=== PATIENT | male | born 1975 | race Caucasian/White ===

== ENCOUNTER 2018-08-03 09:23 | Inpatient (IN) | payer MEDICAID ==
[~2018-08-03] VITALS: Ht 188 cm; Wt 108.7 kg
[2018-08-03] MEDS ORDERED: SODIUM CHLORIDE 0.9% 1,000 ML IV ONE (10:43)
[2018-08-03] MEDS ORDERED: ENOXAPARIN SOD 100 MG/1 ML SYRINGE SC ONE (10:45)
[2018-08-03 11:19] LABS: Basophils # (auto) 0 uL; Basophils % (auto) 0.1 % (0.0-2.0); Eosinophils # (auto) 0 uL; Eosinophils % (auto) 0.2 % (0.0-7.0); Hematocrit 45.3 % (41.0-53.0); Hemoglobin 15.6 g/dL (13.5-17.5); Lymphocytes % (auto) 6.1 % (10.0-50.0); Mean Corpuscular Hemoglobin 31.2 pg (28.0-32.0); Mean Corpuscular Hgb Conc. 34.5 g/dL (32.0-36.0); Mean Corpuscular Volume 90.4 fL (80.0-100.0); Monocytes # (auto) 1.5 uL; Monocytes % (auto) 8.7 % (0.0-12.0); Neutrophils # (auto) 14.3 uL; Neutrophils % (auto) 84.9 % (37.0-80.0); Platelet Count (auto) 364 10^3/uL (140-450); Red Cell Distribution Width 13.1 % (11.8-14.3); White Blood Cell 16.9 10^3/uL (4.4-10.8)
[2018-08-03 11:41] LABS: INR 0.92 (0.9-1.15); Partial Thromboplastin Time 31.8 sec (23.78-33.04); Prothrombin Time 9.9 sec (9.27-12.13)
[2018-08-03 11:47] LABS: Alanine Aminotransferase 39 U/L (16-61); Albumin 3.3 g/dL (3.4-5.0); Alkaline Phosphatase 126 U/L (45-117); Anion Gap 7 (5-15); Aspartate Aminotransferase 18 U/L (15-37); BUN/Creatinine Ratio 18.3; Bilirubin, Total 0.7 mg/dL (0.2-1.0); Blood Urea Nitrogen 15 mg/dL (7-18); Calcium 8.9 mg/dL (8.5-10.1); Carbon Dioxide 22 mmol/L (21-32); Chloride 105 mmol/L (98-107); GFR African American 131 mL/min; GFR Non-African American 108 mL/min; Glucose 109 mg/dL (74-106); Magnesium 2.8 mg/dL (1.6-2.6); Potassium 3.9 mmol/L (3.5-5.1); Sodium 134 mmol/L (136-145); Total Protein 8.4 g/dL (6.4-8.2)
[2018-08-03 12:03] LABS: Urine Bacteria NONE SEEN /hpf (None Seen); Urine Blood Negative /uL (Negative); Urine Mucus MODERATE (None Seen); Urine Specific Gravity 1.033 (1.001-1.035); Urine WBC 2 /hpf (0 - 3)
[2018-08-03] MEDS ORDERED: IOHEXOL 350 MG/ML 100ML IJ ONE (12:05)
[2018-08-03] MEDS ORDERED: ONDANSETRON HCL 4 MG/2 ML VIAL IV PRN (15:00)
[2018-08-03] MEDS ORDERED: TEMAZEPAM 15 MG CAP PO PRN (15:00)
[2018-08-03] MEDS ORDERED: cloNIDine HCL 0.1 MG TAB PO PRN (15:00)
[2018-08-03] MEDS ORDERED: NITROGLYCERIN 0.4 MG SL TAB SL PRN (15:00)
[2018-08-03] MEDS ORDERED: MORPHINE SULFATE 4 MG/ML SYR/VIAL IV PRN (15:00)
[2018-08-03] MEDS ORDERED: ACETAMINOPHEN 325 MG TAB PO PRN (15:00)
[2018-08-03 16:50] VITALS: BP 139/83
[2018-08-03] MEDS ORDERED: WARFARIN SODIUM 5 MG TAB PO ONE (17:00)
[2018-08-03] MEDS: DOCUSATE SOD 100 MG CAP PO PRN (17:07)
[2018-08-03] MEDS: MORPHINE SULFATE 4 MG/ML SYR/VIAL IV PRN ×2 (17:07→20:41)
[2018-08-03 19:53] VITALS: BP 149/87
[2018-08-03] MEDS: SODIUM CHLOR 0.9% PF (SALINE LOCK) 10ML VIAL/SYR IV SCH (20:39)
[2018-08-03] MEDS: FAMOTIDINE 20 MG TAB PO SCH (20:40)
[2018-08-03] MEDS: OLANZapine 5 MG TAB PO SCH (20:40)
[2018-08-03] MEDS: ENOXAPARIN SOD 120 MG/0.8 ML SYRINGE SC SCH (20:40)
[2018-08-04 00:46] VITALS: BP 121/88
[2018-08-04] MEDS: MORPHINE SULFATE 4 MG/ML SYR/VIAL IV PRN (04:30)
[2018-08-04 05:00] VITALS: BP 129/83
[2018-08-04 05:04] LABS: Basophils # (auto) 0.1 uL; Basophils % (auto) 0.5 % (0.0-2.0); Eosinophils # (auto) 0.2 uL; Eosinophils % (auto) 1.6 % (0.0-7.0); Hematocrit 41.6 % (41.0-53.0); Hemoglobin 14.1 g/dL (13.5-17.5); Lymphocytes # (auto) 1.7 uL; Mean Corpuscular Hemoglobin 30.8 pg (28.0-32.0); Mean Corpuscular Hgb Conc. 33.9 g/dL (32.0-36.0); Mean Corpuscular Volume 90.7 fL (80.0-100.0); Monocytes # (auto) 1.3 uL; Monocytes % (auto) 10.5 % (0.0-12.0); Neutrophils # (auto) 9.4 uL; Neutrophils % (auto) 74.4 % (37.0-80.0); Platelet Count (auto) 360 10^3/uL (140-450); Red Blood Cells 4.58 10^6/uL (4.5-5.90); White Blood Cell 12.7 10^3/uL (4.4-10.8)
[2018-08-04 05:17] LABS: INR 0.94 (0.9-1.15); Prothrombin Time 10.1 sec (9.27-12.13)
[2018-08-04 05:28] LABS: Alanine Aminotransferase 29 U/L (16-61); Albumin 2.6 g/dL (3.4-5.0); Alkaline Phosphatase 106 U/L (45-117); Anion Gap 7 (5-15); Aspartate Aminotransferase 9 U/L (15-37); BUN/Creatinine Ratio 19.4; Bilirubin, Total 0.5 mg/dL (0.2-1.0); Blood Urea Nitrogen 14 mg/dL (7-18); Calcium 7.9 mg/dL (8.5-10.1); Carbon Dioxide 23 mmol/L (21-32); Chloride 106 mmol/L (98-107); GFR African American 153 mL/min; GFR Non-African American 126 mL/min; Glucose 103 mg/dL (74-106); Potassium 3.8 mmol/L (3.5-5.1); Sodium 136 mmol/L (136-145)
[2018-08-04] MEDS: SODIUM CHLOR 0.9% PF (SALINE LOCK) 10ML VIAL/SYR IV SCH ×3 (06:08→21:34)
[2018-08-04 08:00] VITALS: BP 126/71
[2018-08-04] MEDS: FAMOTIDINE 20 MG TAB PO SCH ×2 (09:55→21:39)
[2018-08-04] MEDS: OLANZapine 5 MG TAB PO SCH ×2 (09:55→21:39)
[2018-08-04] MEDS: ENOXAPARIN SOD 120 MG/0.8 ML SYRINGE SC SCH ×2 (09:56→21:40)
[2018-08-04] MEDS: DOCUSATE SOD 100 MG CAP PO PRN (09:57)
[2018-08-04] MEDS: HYDROcodone-ACET 5/325MG TAB PO PRN ×2 (09:58→20:08)
[2018-08-04] MEDS: MULTIPLE VITAMIN TAB PO SCH (09:58)
[2018-08-04 12:00] VITALS: BP 124/80
[2018-08-04 15:54] VITALS: BP 122/58
[2018-08-04 20:00] VITALS: BP 129/78
[2018-08-05] VITALS: BP 124/73
[2018-08-05 04:00] VITALS: BP 117/79
[2018-08-05] MEDS: SODIUM CHLOR 0.9% PF (SALINE LOCK) 10ML VIAL/SYR IV SCH ×3 (05:10→21:33)
[2018-08-05 05:31] LABS: Basophils # (auto) 0.1 uL; Basophils % (auto) 0.5 % (0.0-2.0); Eosinophils # (auto) 0.3 uL; Eosinophils % (auto) 2.3 % (0.0-7.0); Hemoglobin 14.4 g/dL (13.5-17.5); Lymphocytes # (auto) 1.7 uL; Lymphocytes % (auto) 14.1 % (10.0-50.0); Mean Corpuscular Hemoglobin 30.2 pg (28.0-32.0); Mean Corpuscular Hgb Conc. 33.4 g/dL (32.0-36.0); Mean Corpuscular Volume 90.5 fL (80.0-100.0); Monocytes # (auto) 1.1 uL; Monocytes % (auto) 8.9 % (0.0-12.0); Neutrophils # (auto) 8.9 uL; Neutrophils % (auto) 74.2 % (37.0-80.0); Nucleated Red Blood Cells % 0.1 %; Platelet Count (auto) 390 10^3/uL (140-450); Red Blood Cells 4.76 10^6/uL (4.5-5.90); Red Cell Distribution Width 13.2 % (11.8-14.3)
[2018-08-05 05:52] LABS: Albumin 2.6 g/dL (3.4-5.0); Bilirubin, Total 0.3 mg/dL (0.2-1.0); Calcium 8.5 mg/dL (8.5-10.1); Potassium 3.7 mmol/L (3.5-5.1); Total Protein 7.2 g/dL (6.4-8.2)
[2018-08-05 08:00] VITALS: BP 130/84
[2018-08-05 09:34] LABS: INR 1.09 (0.9-1.15); Prothrombin Time 11.6 sec (9.27-12.13)
[2018-08-05] MEDS: FAMOTIDINE 20 MG TAB PO SCH ×2 (09:39→21:33)
[2018-08-05] MEDS: MULTIPLE VITAMIN TAB PO SCH (09:39)
[2018-08-05] MEDS: ENOXAPARIN SOD 120 MG/0.8 ML SYRINGE SC SCH ×2 (09:40→21:34)
[2018-08-05] MEDS: HYDROcodone-ACET 5/325MG TAB PO PRN ×2 (09:40→19:57)
[2018-08-05] MEDS ORDERED: WARFARIN SODIUM 10 MG TAB PO ONE ×2 (09:49→10:00)
[2018-08-05] MEDS: DOCUSATE SOD 100 MG CAP PO PRN (09:52)
[2018-08-05] MEDS: OLANZapine 5 MG TAB PO SCH ×2 (09:53→21:33)
[2018-08-05 11:50] VITALS: BP 122/73
[2018-08-05 15:50] VITALS: BP 123/75
[2018-08-05 22:00] VITALS: BP 118/77
[2018-08-06 05:56] VITALS: BP 120/75
[2018-08-06] MEDS: SODIUM CHLOR 0.9% PF (SALINE LOCK) 10ML VIAL/SYR IV SCH ×3 (06:17→19:37)
[2018-08-06 06:35] LABS: INR 1.58 (0.9-1.15); Partial Thromboplastin Time 42.5 sec (23.78-33.04); Prothrombin Time 16.5 sec (9.27-12.13)
[2018-08-06 09:00] VITALS: BP 109/68
[2018-08-06] MEDS: ENOXAPARIN SOD 120 MG/0.8 ML SYRINGE SC SCH ×2 (10:04→19:36)
[2018-08-06] MEDS: MULTIPLE VITAMIN TAB PO SCH (10:04)
[2018-08-06] MEDS: OLANZapine 5 MG TAB PO SCH ×2 (10:04→19:37)
[2018-08-06] MEDS: FAMOTIDINE 20 MG TAB PO SCH ×2 (10:05→19:36)
[2018-08-06] MEDS: DOCUSATE SOD 100 MG CAP PO PRN (10:45)
[2018-08-06] MEDS: HYDROcodone-ACET 5/325MG TAB PO PRN ×2 (11:07→19:37)
[2018-08-06 13:00] VITALS: BP 106/66
[2018-08-06 17:00] VITALS: BP 107/75
[2018-08-06] MEDS ORDERED: WARFARIN SODIUM 5 MG TAB PO ONE (17:00)
[2018-08-06 22:00] VITALS: BP 121/75
[2018-08-07 05:00] VITALS: BP 111/74
[2018-08-07 05:43] LABS: Basophils # (auto) 0 uL; Eosinophils # (auto) 0.3 uL; Hemoglobin 14.7 g/dL (13.5-17.5); Lymphocytes # (auto) 1.6 uL; Monocytes # (auto) 0.8 uL; Neutrophils # (auto) 7.3 uL; Nucleated Red Blood Cells % 0.1 %
[2018-08-07] MEDS: SODIUM CHLOR 0.9% PF (SALINE LOCK) 10ML VIAL/SYR IV SCH (05:43)
[2018-08-07 05:47] LABS: Basophils % (auto) 0.5 % (0.0-2.0); Eosinophils % (auto) 2.6 % (0.0-7.0); Hematocrit 42.2 % (41.0-53.0); Lymphocytes % (auto) 15.8 % (10.0-50.0); Mean Corpuscular Hemoglobin 31.2 pg (28.0-32.0); Mean Corpuscular Hgb Conc. 34.9 g/dL (32.0-36.0); Mean Corpuscular Volume 89.5 fL (80.0-100.0); Monocytes % (auto) 7.7 % (0.0-12.0); Neutrophils % (auto) 73.4 % (37.0-80.0); Platelet Count (auto) 454 10^3/uL (140-450); Red Blood Cells 4.72 10^6/uL (4.5-5.90); White Blood Cell 9.9 10^3/uL (4.4-10.8)
[2018-08-07 06:00] LABS: INR 2.04 (0.9-1.15); Partial Thromboplastin Time 46.2 sec (23.78-33.04)
[2018-08-07 06:04] LABS: BUN/Creatinine Ratio 26.3; Calcium 8.4 mg/dL (8.5-10.1); Potassium 4.1 mmol/L (3.5-5.1)
[2018-08-07 08:43] VITALS: BP 113/69
[2018-08-07] MEDS: FAMOTIDINE 20 MG TAB PO SCH (09:52)
[2018-08-07] MEDS: HYDROcodone-ACET 5/325MG TAB PO PRN (09:52)
[2018-08-07] MEDS: ENOXAPARIN SOD 120 MG/0.8 ML SYRINGE SC SCH (09:52)
[2018-08-07] MEDS: OLANZapine 5 MG TAB PO SCH (09:52)
[2018-08-07] MEDS: MULTIPLE VITAMIN TAB PO SCH (09:52)
[2018-08-07 10:57] VITALS: BP 113/69
[2018-08-07] MEDS ORDERED: WARFARIN SODIUM 2 MG TAB PO ONE (17:00)
== END 2018-08-07 11:30 | disposition home or self-care (01) | DRG 134 ==
LOC: ER 09:23 → OVERFLOW 09:24 → DOU IN ICU 16:59 → TELE-CENTR 08-05 18:39
PROVIDERS: ADMIT Internal Medicine; ATTEND Internal Medicine
DX: I26.99 Other pulmonary embolism without acute cor pulmonale (principal); E44.0 Moderate protein-calorie malnutrition; E87.1 Hypo-osmolality and hyponatremia; E83.41 Hypermagnesemia; I82.411 Acute embolism and thrombosis of right femoral vein; F41.1 Generalized anxiety disorder; J98.11 Atelectasis; I10 Essential (primary) hypertension; Z68.30 Body mass index [BMI] 30.0-30.9, adult; Z79.01 Long term (current) use of anticoagulants
CPT/HCPCS: 36415; 71046; 71275; 80048; 80053; 81001; 83735; 84443; 84484; 85025; 85610; 85730; 87081; 93306; 93971; 94761; 96372; J2405